=== PATIENT | female | born 1985 | race Caucasian/White ===

== ENCOUNTER 2017-07-03 08:53 | Emergency (ER) | payer SELFPAY ==
[~2017-07-03] VITALS: Ht 172.7 cm; Wt 66.7 kg
[2017-07-03 09:52] LABS: BILIRUBIN,URINE NEGATIVE (NEGATIVE); KETONES,URINE NEGATIVE (NEGATIVE); LEUKOCYTE ESTERASE ,URINE NEGATIVE (NEGATIVE); NITRITE,URINE NEGATIVE (NEGATIVE); PROTEIN,URINE DIPSTICK NEGATIVE (NEGATIVE); URINE UROBILINOGEN 0.2 mg/dL (0.2 - 1)
[2017-07-03 10:28] LABS: BACTERIA,URINE RARE /HPF; CLARITY,URINE SL CLOUDY (CLEAR); COLOR,URINE YELLOW (YELLOW); EPITHELIAL CELLS,URINE MODERATE /LPF
--- NOTE | 2017-07-03 11:13 | Diagnostic Imaging Report ---
PROCEDURE: CT ABDOMEN AND PELVIS WITHOUT CONTRAST TECHNIQUE: The abdomen and pelvis were scanned utilizing a multidetector helical scanner from the diaphragm to the lesser trochanter. No oral or intravenous contrast was administered per renal stone protocol. Coronal and sagittal multiplanar reformations were obtained. COMPARISON: None. INDICATIONS: STONE PROTOCOL, RIGHT LOWER QUADRANT PAIN FINDINGS: ABSENCE OF INTRAVENOUS CONTRAST DECREASES SENSITIVITY FOR DETECTION OF FOCAL LESIONS AND VASCULAR PATHOLOGY. LOWER THORAX: Normal. HEPATOBILIARY: No focal hepatic lesions. No biliary ductal dilatation. SPLEEN: No splenomegaly. PANCREAS: No focal masses or ductal dilatation. ADRENALS: No adrenal nodules. KIDNEYS/URETERS: Punctate nonobstructing calculus in the interpolar left kidney seen on series 3 image 43. No additional renal, ureteral, or bladder calculi. No hydronephrosis. No gross renal mass lesion. PELVIC ORGANS/BLADDER: The urinary bladder is incompletely distended but otherwise unremarkable. The uterus is anteflexed and appears normal. There is a 5.1 cm right adnexal cystic structure, average internal attenuation 8 Hounsfield units. There is also a 3.3 cm left adnexal low attenuation structure, though slightly greater than expected attenuation for a simple cyst (25-30 Hounsfield units). PERITONEUM / RETROPERITONEUM: No ascites. No pneumoperitoneum. LYMPH NODES: No pelvic sidewall, retroperitoneal, or mesenteric lymphadenopathy. VESSELS: Limited evaluation without intravenous contrast. The abdominal aorta is non-aneurysmal. GI TRACT: The large bowel shows no evidence of distention or wall thickening. Gas and fecal material are noted throughout the large bowel. The appendix is normal. There is no small bowel dilatation to suggest obstruction. BONES AND SOFT TISSUES: No focal soft tissue abnormalities with the exception of a very small fat containing umbilical hernia. No osseous destructive lesions. IMPRESSION: 5.1 cm right adnexal cystic lesion, which may explain the patient's right lower quadrant pain. Additional intermediate attenuation lesion in the left adnexa may represent a hemorrhagic cyst, though the differential diagnosis includes an exophytic degenerated uterine fundal fibroid. Transvaginal pelvic ultrasound may be of benefit for further evaluation of above findings. Punctate nonobstructing left renal calculus . Normal appendix. Dictated by: Dwight Gee M.D. on 07/03/2017 at 11:22 Electronically approved by: Dwight Gee M.D. on 07/03/2017 at 11:22
[2017-07-03 11:32] VITALS: BP 128/86
== END 2017-07-03 11:45 | disposition home or self-care (01) ==
LOC: ER 08:53
DX: R10.31 Right lower quadrant pain (principal); N83.9 Noninflammatory disorder of ovary, fallopian tube and broad ligament, unspecified
CPT/HCPCS: 74176; 81001; 81025; 87086; 99283

== ENCOUNTER 2018-01-23 07:30 | Emergency (ER) | payer SELFPAY ==
[~2018-01-23] VITALS: Ht 172.7 cm; Wt 73.9 kg
[2018-01-23] MEDS ORDERED: KETOROLAC TROMETHAMINE 30 MG/ML VIAL IV STA (07:41)
[2018-01-23] MEDS ORDERED: ONDANSETRON HCL INJ 2 MG/ML VIAL IV STA (07:41)
[2018-01-23] MEDS ORDERED: SODIUM CHLORIDE 0.9% 1000ML 1,000 ML IV SCH (07:45)
[2018-01-23] MEDS ORDERED: SODIUM CHLORIDE 0.9% 1000ML 1,000 ML ONE (07:54)
[2018-01-23] MEDS ORDERED: SODIUM CHLORIDE 0.9% 1000ML 1,000 ML IV ONE (08:06)
[2018-01-23 08:08] LABS: BASOPHILS % 0.3 % (0.0-1.0); EOSINOPHILS # (AUTO) 0.1 (0.0-0.4); EOSINOPHILS % 1.8 % (0.0-6.0); HEMATOCRIT 39.6 % (34.2-44.1); HEMOGLOBIN 13.3 g/dL (12.0-16.0); LYMPHOCYTES # (AUTO) 1.8 (1.0-3.2); LYMPHOCYTES % 24.5 % (18.0-39.1); MEAN CORPUSCULAR HEMOGLOBIN 30.4 pg (28-32); MEAN CORPUSCULAR HGB CONC 33.6 g/dL (31-35); MEAN CORPUSCULAR VOLUME 90.6 fL (81-99); MONOCYTES # (AUTO) 0.6 (0.2-0.8); MONOCYTES % 8.2 % (4.4-11.3); NEUTROPHILS # (AUTO) 4.7 (2.1-6.9); NEUTROPHILS % 65.1 % (38.7-80.0); PLATELET COUNT 185 x10e3/uL (140-360); RED BLOOD COUNT 4.37 x10e6/uL (3.6-5.1); RED CELL DISTRIBUTION WIDTH 12.7 % (11.7-14.4)
[2018-01-23 08:20] LABS: CLARITY,URINE HAZY (CLEAR); COLOR,URINE YELLOW (YELLOW); LEUKOCYTE ESTERASE ,URINE NEGATIVE (NEGATIVE); NITRITE,URINE NEGATIVE (NEGATIVE); PROTEIN,URINE DIPSTICK NEGATIVE (NEGATIVE)
[2018-01-23 08:21] LABS: BILIRUBIN,URINE NEGATIVE (NEGATIVE); KETONES,URINE NEGATIVE (NEGATIVE); PREGNANCY TEST, URINE NEGATIVE (NEGATIVE); URINE UROBILINOGEN 1 mg/dL (0.2 - 1)
[2018-01-23 08:24] LABS: AMORPHOUS SEDIMENT,URINE FEW (FEW); BACTERIA,URINE FEW /HPF; EPITHELIAL CELLS,URINE FEW /LPF; RBC,URINE 0-5 /HPF (0-5); WBC,URINE (MAN) 0-5 /HPF (0-5)
[2018-01-23 08:29] LABS: ALANINE AMINOTRANSFERASE 19 IU/L (0-55); ALBUMIN 3.9 g/dL (3.5-5.0); ALBUMIN/GLOBULIN RATIO 1.1 (0.8-2.0); ALKALINE PHOSPHATASE 95 IU/L (40-150); AMYLASE 31 U/L (25-125); ANION GAP 12.5 mmol/L (8-16); BLOOD UREA NITROGEN 8 mg/dL (7-26); BUN/CREATININE RATIO 10 (6-25); CALCIUM 9.2 mg/dL (8.4-10.2); CARBON DIOXIDE 23 mmol/L (22-29); CHLORIDE 104 mmol/L (98-107); CREATININE, SERUM 0.81 mg/dL (0.57-1.11); EST GLOMERULAR FILTRATION RATE > 60 ML/MIN (60-); GLUCOSE 100 mg/dL (74-118); LIPASE 6 U/L (8-78); POTASSIUM 3.5 mmol/L (3.5-5.1); SODIUM 136 mmol/L (136-145)
--- NOTE | 2018-01-23 09:34 | Diagnostic Imaging Report ---
EXAM: CT Abdomen and Pelvis WITHOUT contrast INDICATION: \S\RLQ/right flank pain \[id number] \S\[id number] COMPARISON: CT abdomen and pelvis 07/03/2017 TECHNIQUE: Abdomen and pelvis were scanned utilizing a multidetector helical scanner from the lung base to the pubic symphysis without administration of IV contrast. Absence of intravenous contrast decreases sensitivity for detection of focal lesions and vascular pathology. Coronal and sagittal reformations were obtained. Routine protocol was performed. IV CONTRAST: None. ORAL CONTRAST: Water RADIATION DOSE: Total DLP: 337.8 mGy*cm Estimated effective dose: (DLP x 0.015 x size factor) mSv COMPLICATIONS: None FINDINGS: LINES and TUBES: None. LOWER THORAX: Unremarkable HEPATOBILIARY: No focal hepatic lesions. No biliary ductal dilation. GALLBLADDER: No radio-opaque stones or sludge. No wall thickening. SPLEEN: No splenomegaly. PANCREAS: No focal masses or ductal dilatation. ADRENALS: No adrenal nodules KIDNEYS/URETERS: No hydronephrosis. No cystic or solid mass lesions. Unchanged 3-4 mm nonobstructing calcified stone in the interpolar region of the left kidney. 1 mm calcified stone in the upper pole of the right kidney better seen on coronal image 64 and not seen on prior exam. No calcified stones in the ureters. GI TRACT: No abnormal distention, wall thickening, or evidence of bowel obstruction. Appendix is not visualized. PELVIC ORGANS/BLADDER: The uterus is enlarged and likely containing some fibroids. The bladder is partially collapsed. LYMPH NODES: No lymphadenopathy. VESSELS: Unremarkable. PERITONEUM / RETROPERITONEUM: No free air or fluid. BONES: Unremarkable. SOFT TISSUES: Unremarkable. IMPRESSION: 1. Interval development of a 1 mm right renal stone. No hydronephrosis. 2. Stable left nephrolithiasis. Signed by: Dr. Astrid Lira M.D. on 01/23/2018 9:25 AM
--- NOTE | 2018-01-23 10:30 | Diagnostic Imaging Report ---
EXAM: Transabdominal and Transvaginal Pelvic Ultrasound with Duplex INDICATION: Right lower quadrant and pelvic pain COMPARISON: CT abdomen and pelvis 01/23/2018 and pelvic ultrasound 02/06/2013 TECHNIQUE: Grayscale transverse and sagittal Grayscale transverse and sagittal transabdominal and transvaginal images were obtained of the pelvis. Transvaginal imaging was medically necessary to better evaluate the endometrium and the adnexa. The ovaries were examined with grayscale, color Doppler, and spectral waveform analysis. CLINICAL HISTORY: 32 year old A0; last menstrual period: 01/02/2018. FINDINGS: Uterus Orientation: Normal Size: 9.0 x 5.5 x 6.5 cm, normal Mass: None Cervix: Normal Endometrium: Thickness: 1.8 cm, mildly increased. Appearance: Homogeneous echotexture without focal thickening. Right ovary: Size: 8.0 x 6.1 x 6.0 cm, enlarged Mass/Cyst: Few complex cyst. For example: 4.6 x 3.3 x 3.3 cm echogenic solid cystic lesion. 4.0 x 2.6 x 2.4 cm complex cystic and solid lesion. Vascularity: Normal venous and arterial color flow and waveforms. Left ovary: Size: 4.9 x 3.0 x 3.9 cm Mass/Cyst: 4.9 x 3.0 x 3.9 cm complex echogenic cyst. Vascularity: Normal venous and arterial color flow and waveforms. Adnexa: Normal Cul-de-sac: No free fluid IMPRESSION: 1. Arterial and venous flow is identified in both ovaries. Low likelihood of ovarian torsion. 2. Thickened endometrium may relate to hyperplasia. 3. Few bilateral complex ovarian cystic lesions suggestive of endometriomas. Recommend ambulatory REGIONAL EDUCATION COORDINATOR consultation and MRI female pelvis with and without contrast. Signed by: Dr. Astrid Lira M.D. on 01/23/2018 10:25 AM
[2018-01-23 12:08] VITALS: BP 112/80
--- NOTE | 2018-01-26 11:46 | Diagnostic Imaging Report ---
EXAM: Transabdominal and Transvaginal Pelvic Ultrasound with Duplex INDICATION: Right lower quadrant and pelvic pain COMPARISON: CT abdomen and pelvis 01/23/2018 and pelvic ultrasound 02/06/2013 TECHNIQUE: Grayscale transverse and sagittal Grayscale transverse and sagittal transabdominal and transvaginal images were obtained of the pelvis. Transvaginal imaging was medically necessary to better evaluate the endometrium and the adnexa. The ovaries were examined with grayscale, color Doppler, and spectral waveform analysis. CLINICAL HISTORY: 32 year old A0; last menstrual period: 01/02/2018. FINDINGS: Uterus Orientation: Normal Size: 9.0 x 5.5 x 6.5 cm, normal Mass: None Cervix: Normal Endometrium: Thickness: 1.8 cm, mildly increased. Appearance: Homogeneous echotexture without focal thickening. Right ovary: Size: 8.0 x 6.1 x 6.0 cm, enlarged Mass/Cyst: Few complex cyst. For example: 4.6 x 3.3 x 3.3 cm echogenic solid cystic lesion. 4.0 x 2.6 x 2.4 cm complex cystic and solid lesion. Vascularity: Normal venous and arterial color flow and waveforms. Left ovary: Size: 4.9 x 3.0 x 3.9 cm Mass/Cyst: 4.9 x 3.0 x 3.9 cm complex echogenic cyst. Vascularity: Normal venous and arterial color flow and waveforms. Adnexa: Normal Cul-de-sac: No free fluid IMPRESSION: 1. Arterial and venous flow is identified in both ovaries. Low likelihood of ovarian torsion. 2. Thickened endometrium may relate to hyperplasia. 3. Few bilateral complex ovarian cystic lesions suggestive of endometriomas. Recommend ambulatory SEWING MACHINE ADJUSTER consultation and MRI female pelvis with and without contrast. Signed by: Dr. Astrid Lira M.D. on 01/23/2018 10:25 AM
== END 2018-01-23 12:23 | disposition home or self-care (01) ==
LOC: ER 07:37
DX: R10.31 Right lower quadrant pain (principal); R11.0 Nausea; N83.202 Unspecified ovarian cyst, left side; N83.201 Unspecified ovarian cyst, right side
CPT/HCPCS: 36415; 74176; 76830; 80053; 81001; 81025; 82150; 83690; 85025; 93976; 96374; 99284; J1885; J2405; J7030